=== PATIENT | female | born 1975 | race Caucasian/White ===

== ENCOUNTER 2016-10-02 11:50 | Emergency (ER) | payer OTHER, SELFPAY ==
[~2016-10-02] VITALS: Ht 157.5 cm; Wt 69.2 kg
[2016-10-02 11:50] VITALS: BP 111/60
[2016-10-02] MEDS ORDERED: IBUP80TA PO (12:15)
[2016-10-02] MEDS ORDERED: CLINDAMYCIN 150 MG CAP PO ONE (12:15)
[2016-10-02] MEDS ORDERED: CLIN150C14 PO (12:15)
[2016-10-02] MEDS ORDERED: IBUPROFEN 800 MG TAB PO ONE (12:15)
== END 2016-10-02 12:28 | disposition home or self-care (01) ==
LOC: M ED 11:50
DX: L08.9 Local infection of the skin and subcutaneous tissue, unspecified (principal); F17.210 Nicotine dependence, cigarettes, uncomplicated; Z88.2 Allergy status to sulfonamides; Z88.5 Allergy status to narcotic agent

== ENCOUNTER 2016-10-04 00:22 | Emergency (ER) | payer SELFPAY ==
[~2016-10-04] VITALS: Ht 154.9 cm; Wt 69.0 kg
[~2016-10-04 00:22] MED LIST: CLIN150C14 PO; IBUP80TA PO
[2016-10-04] MEDS: ONDANSETRON 4 MG ORAL DISINTEGRATING TAB (S0181) PO ONE ×2 (06:30→06:33)
[2016-10-04] MEDS ORDERED: IBUPROFEN 800 MG TAB PO ONE (06:30)
[2016-10-04 07:12] VITALS: BP 106/51
--- NOTE | 2016-10-04 07:20 | REPUSA ---
BREAST ULTRASOUND: CLINICAL HISTORY: Pain. TECHNIQUE: Realtime sonographic images were obtained in multiple projections. COMMENTS: The right breast was scanned between 12 and 2:00. There is a palpable lump at 1:00 that corresponds to a complex cyst likely a sebaceous measuring 1.1x 1.6x0.7 cm. This is noted at both 3 cm from nipple. IMPRESSION: Palpable lump at 1:00 that corresponds to a complex sebaceous cyst. Thank you for your kind referral of this patient.
[2016-10-04] MEDS ORDERED: ULTR50TA8 PO (07:33)
== END 2016-10-04 07:41 | disposition home or self-care (01) ==
LOC: M ED 00:22
DX: N60.81 Other benign mammary dysplasias of right breast (principal); J44.9 Chronic obstructive pulmonary disease, unspecified; F17.210 Nicotine dependence, cigarettes, uncomplicated; Z79.2 Long term (current) use of antibiotics; Z88.5 Allergy status to narcotic agent; Z88.2 Allergy status to sulfonamides

== ENCOUNTER 2016-10-06 03:20 | Emergency (ER) | payer SELFPAY ==
[~2016-10-06 03:20] MED LIST changes: +ULTR50TA8 PO
[2016-10-06 03:25] VITALS: BP 114/57
[2016-10-06] MEDS ORDERED: PERCOCET 5MG/325MG TAB PO ONE (07:30)
[2016-10-06] MEDS ORDERED: ONDANSETRON 4 MG ORAL DISINTEGRATING TAB (S0181) PO ONE (07:30)
[2016-10-06] MEDS ORDERED: PERC5TAB12 PO (07:35)
== END 2016-10-06 09:44 | disposition home or self-care (01) ==
LOC: M ED 03:20
DX: L72.3 Sebaceous cyst (principal); J45.909 Unspecified asthma, uncomplicated; N80.9 Endometriosis, unspecified; F17.210 Nicotine dependence, cigarettes, uncomplicated; Z88.2 Allergy status to sulfonamides; Z88.5 Allergy status to narcotic agent

== ENCOUNTER 2017-03-02 15:17 | Emergency (ER) | payer SELFPAY ==
[2017-03-02] MEDS: AMOXICILLIN 500 MG CAP PO (16:15)
[2017-03-02] MEDS: LIDOCAINE VISCOUS 2% SOLN 15ML UDC TOP (16:16)
== END 2017-03-02 16:25 | disposition home or self-care (01) ==
LOC: M ED 15:17
DX: H66.91 Otitis media, unspecified, right ear (principal); J02.9 Acute pharyngitis, unspecified; J45.909 Unspecified asthma, uncomplicated; Z88.5 Allergy status to narcotic agent; Z88.1 Allergy status to other antibiotic agents; Z88.2 Allergy status to sulfonamides
CPT/HCPCS: 87880

== ENCOUNTER 2017-04-02 06:47 | Emergency (ER) | payer SELFPAY ==
[2017-04-02] MEDS: KETOROLAC 60 MG/2 ML VIAL (J1885) IM (08:21)
[2017-04-02] MEDS: diazePAM 5 MG TAB PO (08:21)
[2017-04-02] MEDS: predniSONE 20 MG TAB PO (08:21)
== END 2017-04-02 09:26 | disposition home or self-care (01) ==
LOC: M ED 06:47
DX: M54.32 Sciatica, left side (principal); J45.909 Unspecified asthma, uncomplicated; F17.210 Nicotine dependence, cigarettes, uncomplicated; Z88.5 Allergy status to narcotic agent; Z88.1 Allergy status to other antibiotic agents; Z88.2 Allergy status to sulfonamides; Z98.890 Other specified postprocedural states; Z87.42 Personal history of other diseases of the female genital tract
CPT/HCPCS: J1885

== ENCOUNTER → 2017-08-08 | Outpatient (REF) | payer OTHER | LOC: M LAB REF 08-09 13:40 | DX: N30.01 Acute cystitis with hematuria (principal) | CPT/HCPCS: 87086 ==

== ENCOUNTER → 2017-08-28 | Outpatient (CLI) | payer OTHER ==
[2017-08-28 10:17] LABS: BASO % 0.4 % (0.0-1.0); EOS # 0.1 10^3/uL (0.0-0.50); EOS % 0.7 % (0.0-3.0); HEMATOCRIT 39.3 % (36.0-47.0); HEMOGLOBIN 13.3 g/dl (12.0-15.5); IMMATURE GRANULOCYTE % 0.2 % (0-3.0); LYMPH # 2.3 10^3/uL (1.5-4.5); LYMPH % 23.5 % (24.0-44.0); MEAN CORPUSCULAR HEMOGLOBIN 30.8 pg (27.0-33.0); MEAN CORPUSCULAR HGB CONC 33.8 g/dl (32.0-36.5); MONO # 0.8 10^3/uL (0.0-0.8); NEUTROPHILS # 6.5 10^3/uL (1.8-7.7); NEUTROPHILS % 67.2 % (36.0-66.0); PLATELET COUNT, AUTOMATED 343 10^3/uL (150-450); RED BLOOD COUNT 4.32 10^6/uL (4.00-5.40); WHITE BLOOD COUNT 9.6 10^3/uL (4.0-10.0)
[2017-08-28 11:35] LABS: THYROID STIMULATING HORMONE 0.949 uIU/ML (0.358-3.740)
== END ==
LOC: M RAD 09:16
DX: N93.9 Abnormal uterine and vaginal bleeding, unspecified (principal)
CPT/HCPCS: 76856

== ENCOUNTER 2017-09-09 01:44 | Emergency (ER) | payer OTHER ==
[2017-09-09] MEDS: KETOROLAC 30 MG/ML VIAL (J1885) IV (03:38)
[2017-09-09] MEDS: HYDROMORPHONE HCL 0.5 MG/ 0.5 ML SYRINGE (J1170 PER 1) IV (03:38)
[2017-09-09] MEDS: ONDANSETRON 4MG/2ML VIAL (J2405) IV (03:38)
[2017-09-09] MEDS: METHOCARBAMOL 1,000 MG/10 ML VIAL (J2800) IV (03:49)
== END 2017-09-09 06:48 | disposition home or self-care (01) ==
LOC: M ED 01:44
DX: R07.89 Other chest pain (principal); Z88.1 Allergy status to other antibiotic agents; Z88.2 Allergy status to sulfonamides; Z88.5 Allergy status to narcotic agent; F17.210 Nicotine dependence, cigarettes, uncomplicated
CPT/HCPCS: J2405

== ENCOUNTER → 2017-09-28 | Outpatient (REF) | payer OTHER | LOC: M LAB REF 19:36 | DX: N93.9 Abnormal uterine and vaginal bleeding, unspecified (principal) | CPT/HCPCS: 88304 ==

== ENCOUNTER → 2017-10-10 | Outpatient (REF) | payer OTHER ==
[2017-10-12 14:17] LABS: HPV HYBRID CAPTURE II Positive (Negative)
== END ==
LOC: M LAB REF 17:56
DX: Z11.51 Encounter for screening for human papillomavirus (HPV) (principal)
CPT/HCPCS: 88142

== ENCOUNTER → 2017-10-20 | Outpatient (REF) | payer OTHER ==
[2017-10-20 12:50] LABS: BASO % 0.4 % (0.0-1.0); EOS # 0.1 10^3/uL (0.0-0.50); EOS % 1.3 % (0.0-3.0); HEMATOCRIT 41.8 % (36.0-47.0); HEMOGLOBIN 13.8 g/dl (12.0-15.5); IMMATURE GRANULOCYTE % 0.3 % (0-3.0); LYMPH # 1.7 10^3/uL (1.5-4.5); LYMPH % 21.7 % (24.0-44.0); MEAN CORPUSCULAR HEMOGLOBIN 30.8 pg (27.0-33.0); MEAN CORPUSCULAR VOLUME 93.3 fl (80.0-96.0); MONO # 0.8 10^3/uL (0.0-0.8); MONO % 9.9 % (0.0-5.0); NEUTROPHILS # 5.3 10^3/uL (1.8-7.7); NEUTROPHILS % 66.4 % (36.0-66.0); PLATELET COUNT, AUTOMATED 314 10^3/uL (150-450); RED BLOOD COUNT 4.48 10^6/uL (4.00-5.40); RED CELL DISTRIBUTION WIDTH 13.1 % (11.5-14.5)
[2017-10-20 13:11] LABS: ALBUMIN 3.4 GM/DL (3.2-5.2); ALBUMIN/GLOBULIN RATIO 1.03 (1.00-1.93); ALKALINE PHOSPHATASE 50 U/L (45-117); ALT/SGPT 16 U/L (12-78); ANION GAP 7 MEQ/L (8-16); AST/SGOT 11 U/L (7-37); BILIRUBIN,TOTAL 0.3 MG/DL (0.2-1.0); BLOOD UREA NITROGEN 7 MG/DL (7-18); CALCIUM LEVEL 8.7 MG/DL (8.5-10.1); CARBON DIOXIDE LEVEL 27 MEQ/L (21-32); CHLORIDE LEVEL 108 MEQ/L (98-107); CHOLESTEROL LEVEL 164 MG/DL (<200); CHOLESTEROL RISK RATIO 3.489 (<5); CREATININE FOR GFR 0.52 MG/DL (0.55-1.30); GLOMERULAR FILTRATION RATE > 60.0 (>58); GLUCOSE, FASTING 77 MG/DL (70-100); HDL CHOLESTEROL 47 MG/DL (>40); LDL CHOLESTEROL 99.4 MG/DL (<100); NON-HDL-C 117 MG/DL; POTASSIUM SERUM 4.1 MEQ/L (3.5-5.1); SODIUM LEVEL 142 MEQ/L (136-145); TOTAL PROTEIN 6.7 GM/DL (6.4-8.2); TRIGLYCERIDES LEVEL 88 MG/DL (<150)
== END ==
LOC: M SFHCADAM 12:16
DX: Z01.818 Encounter for other preprocedural examination (principal); N92.6 Irregular menstruation, unspecified
CPT/HCPCS: 80053

== ENCOUNTER 2017-10-23 06:02 | Day surgery (SDC) | payer OTHER ==
[2017-10-23 06:25] LABS: HEMATOCRIT 41.1 % (36.0-47.0); HEMOGLOBIN 13.9 g/dl (12.0-15.5); MEAN CORPUSCULAR HEMOGLOBIN 31.4 pg (27.0-33.0); MEAN CORPUSCULAR HGB CONC 33.8 g/dl (32.0-36.5); PLATELET COUNT, AUTOMATED 303 10^3/uL (150-450); RED BLOOD COUNT 4.42 10^6/uL (4.00-5.40); RED CELL DISTRIBUTION WIDTH 13.2 % (11.5-14.5); WHITE BLOOD COUNT 7.3 10^3/uL (4.0-10.0)
[2017-10-23 06:31] LABS: CONTROL LINE HCG INT CTR LINE PRESENT; HCG, SERUM QUALITATIVE NEGATIVE (NEGATIVE)
[2017-10-23] MEDS: LR 1,000 ML IV ×3 (06:45→12:03)
[2017-10-23] MEDS ORDERED: LIDOCAINE 2% INJ 100 MG/5 ML SDV (FOR ANES.) As Ordered (07:17)
[2017-10-23] MEDS ORDERED: MIDAZOLAM INJ 2 MG/2 ML VIAL (J2250) As Ordered (07:17)
[2017-10-23] MEDS ORDERED: ROCURONIUM BROMIDE 50 MG/5 ML VIAL As Ordered ×2 (07:17→08:26)
[2017-10-23] MEDS ORDERED: fentaNYL 100 MCG/2 ML INJECTION (J3010) As Ordered ×2 (07:17→08:11)
[2017-10-23] MEDS ORDERED: PROPOFOL 200 MG/20 ML VIAL As Ordered (07:17)
[2017-10-23] MEDS ORDERED: PHENYLEPHRINE INJ 10MG/ML VIAL (J2370) As Ordered (07:55)
[2017-10-23] MEDS ORDERED: dexameTHASONE 4 MG/ML 1ML VIAL (J1100) As Ordered (07:55)
[2017-10-23] MEDS ORDERED: PHENYLephrine HCL 500 MCG/5 ML (100MCG/ML) SYRINGE (J2370) As Ordered (07:56)
[2017-10-23] MEDS ORDERED: CALCIUM CHLORIDE 10% 1 GM/10 ML SYR As Ordered (08:06)
[2017-10-23] MEDS ORDERED: ePHEDrine SULFATE 25 MG/5 ML(5MG/ML) SYRINGE As Ordered (08:23)
[2017-10-23] MEDS: METHYLENE BLUE 0.5% (5MG/ML) 10 ML AMP (PROVAYBLUE)(Q9968 PER 1MG) As Ordered (09:01)
[2017-10-23] MEDS ORDERED: KETOROLAC 60 MG/2 ML VIAL (J1885) As Ordered (09:13)
[2017-10-23] MEDS ORDERED: NEOSTIGMINE 10 MG/10 ML VIAL (J2710) As Ordered (09:13)
[2017-10-23] MEDS ORDERED: ONDANSETRON 4MG/2ML VIAL (J2405) As Ordered (09:13)
[2017-10-23] MEDS ORDERED: GLYCOPYRROLATE INJ 0.2 MG/ML 2 ML VIAL As Ordered (09:13)
[2017-10-23] MEDS ORDERED: HYDROmorphone HCL 2 MG/ML 1ML VIAL (J1170) As Ordered (09:43)
[2017-10-23] MEDS: BUPIVACAINE HCL 0.25% 30 ML VIAL As Ordered (09:47)
[2017-10-23] MEDS ORDERED: PROMETHAZINE 25 MG TAB PO (10:00)
[2017-10-23] MEDS ORDERED: PROMETHAZINE INJ 25 MG/ML VIAL (J2550) IV (10:00)
[2017-10-23] MEDS: SILVER NITRATE APPLICATOR As Ordered (10:06)
[2017-10-23] MEDS ORDERED: fentaNYL 100 MCG/2 ML INJECTION (J3010) IV (10:30)
[2017-10-23] MEDS ORDERED: PERCOCET 5MG/325MG TAB PO (10:30)
[2017-10-23] MEDS ORDERED: ONDANSETRON 4MG/2ML VIAL (J2405) IV (10:30)
[2017-10-23] MEDS ORDERED: METOCLOPRAMIDE INJ 10MG/2ML VIAL (J2765) IV (10:30)
[2017-10-23] MEDS: traMADol 50 MG TAB PO (12:04)
[2017-10-23] MEDS: KETOROLAC 30 MG/ML VIAL (J1885) IV (15:03)
[2017-10-23] MEDS ORDERED: DOCUSATE SODIUM 100 MG CAP PO (21:00)
== END 2017-10-23 18:19 | disposition home or self-care (01) ==
LOC: M SDC 06:02 → M PED 11:00 → M SDC 18:19
DX: N92.6 Irregular menstruation, unspecified (principal); N72 Inflammatory disease of cervix uteri; N84.0 Polyp of corpus uteri; N83.01 Follicular cyst of right ovary; F41.9 Anxiety disorder, unspecified; J45.909 Unspecified asthma, uncomplicated; F17.210 Nicotine dependence, cigarettes, uncomplicated; Z88.2 Allergy status to sulfonamides
CPT/HCPCS: 58571

== ENCOUNTER → 2017-11-08 | Outpatient (CLI) | payer OTHER | LOC: M RAD 08:21 | DX: Z12.31 Encounter for screening mammogram for malignant neoplasm of breast (principal) | CPT/HCPCS: 77067 ==

== ENCOUNTER 2018-01-28 15:32 | Emergency (ER) | payer OTHER ==
[2018-01-28] MEDS: LIDOCAINE W/EPINEPHRINE 1% 20ML VIAL SC (16:30)
[2018-01-28] MEDS: CLINDAMYCIN 300 MG in APPROPRIATE DILUENT 1 EA IV (16:35)
[2018-01-28 16:47] LABS: BASO % 0.5 % (0.0-1.0); EOS # 0.1 10^3/uL (0.0-0.50); EOS % 1.2 % (0.0-3.0); HEMATOCRIT 39.4 % (36.0-47.0); HEMOGLOBIN 13.4 g/dl (12.0-15.5); IMMATURE GRANULOCYTE % 0.1 % (0-3.0); LYMPH # 3.4 10^3/uL (1.5-4.5); LYMPH % 39.3 % (24.0-44.0); MEAN CORPUSCULAR HEMOGLOBIN 30.9 pg (27.0-33.0); MONO # 0.7 10^3/uL (0.0-0.8); MONO % 8.4 % (0.0-5.0); NEUTROPHILS # 4.3 10^3/uL (1.8-7.7); NEUTROPHILS % 50.5 % (36.0-66.0); PLATELET COUNT, AUTOMATED 323 10^3/uL (150-450); RED BLOOD COUNT 4.33 10^6/uL (4.00-5.40); RED CELL DISTRIBUTION WIDTH 12.7 % (11.5-14.5); WHITE BLOOD COUNT 8.6 10^3/uL (4.0-10.0)
[2018-01-28 17:03] LABS: ANION GAP 4 MEQ/L (8-16); BLOOD UREA NITROGEN 9 MG/DL (7-18); C REACTIVE PROTEIN QUANTITATIV < 0.30 MG/DL (0.00-0.30); CALCIUM LEVEL 8.7 MG/DL (8.5-10.1); CARBON DIOXIDE LEVEL 29 MEQ/L (21-32); CHLORIDE LEVEL 105 MEQ/L (98-107); CREATININE FOR GFR 0.59 MG/DL (0.55-1.30); GLOMERULAR FILTRATION RATE > 60.0 (>58); GLUCOSE, FASTING 81 MG/DL (70-100); POTASSIUM SERUM 3.8 MEQ/L (3.5-5.1); SODIUM LEVEL 138 MEQ/L (136-145)
[2018-01-28 17:09] LABS: ERYTHROCYTE SEDIMENTATION RATE 15 mm/hr (0-20)
[2018-01-28] MEDS: PERCOCET 5MG/325MG TAB PO (17:26)
== END 2018-01-28 17:45 | disposition home or self-care (01) ==
LOC: M ED 15:32
DX: N61.1 Abscess of the breast and nipple (principal); J45.909 Unspecified asthma, uncomplicated
CPT/HCPCS: 80048

== ENCOUNTER → 2018-02-06 | Outpatient (REF) | payer OTHER | LOC: M LAB REF 17:16 | DX: L72.3 Sebaceous cyst (principal); N61.1 Abscess of the breast and nipple | CPT/HCPCS: 88304 ==

== ENCOUNTER 2018-05-04 13:15 | Emergency (ER) | payer OTHER ==
[~2018-05-04] VITALS: Ht 154.9 cm; Wt 70.5 kg
[~2018-05-04 13:15] MED LIST changes: +AMOX875T PO; +CLEO300C2 PO; +CYCL10TA; +DOXY-350 PO; +IBUP1TAB7 PO; +METH4PACK; +NAPR-50 PO; +NORCOTAB PO; +PERC5TAB12 PO; +PRED20TA PO; +ROBA500T PO; +TRAM50TA2 PO; +VALI5TAB PO
[2018-05-04] MEDS ORDERED: FLUTISP (13:25)
[2018-05-04] MEDS ORDERED: CEFD1CAP8 (13:25)
[2018-05-04] MEDS ORDERED: ALBUTEROL (13:25)
[2018-05-04] MEDS ORDERED: NS 1,000 ML IV ONE (13:45)
[2018-05-04 13:52] LABS: BASO # 0.1 10^3/uL (0.0-0.2); BASO % 0.6 % (0.0-1.0); EOS # 0.1 10^3/uL (0.0-0.50); EOS % 1.1 % (0.0-3.0); HEMOGLOBIN 13.5 g/dl (12.0-15.5); LYMPH # 3.1 10^3/uL (1.5-4.5); LYMPH % 34.7 % (24.0-44.0); MEAN CORPUSCULAR HEMOGLOBIN 30.8 pg (27.0-33.0); MEAN CORPUSCULAR HGB CONC 33.8 g/dl (32.0-36.5); MEAN CORPUSCULAR VOLUME 91.3 fl (80.0-96.0); MONO # 0.7 10^3/uL (0.0-0.8); MONO % 7.7 % (0.0-5.0); NEUTROPHILS % 55.8 % (36.0-66.0); PLATELET COUNT, AUTOMATED 299 10^3/uL (150-450); RED BLOOD COUNT 4.38 10^6/uL (4.00-5.40); WHITE BLOOD COUNT 8.9 10^3/uL (4.0-10.0)
[2018-05-04 14:38] LABS: ALBUMIN 3.7 GM/DL (3.2-5.2); ALT/SGPT 19 U/L (12-78); BILIRUBIN,DIRECT < 0.1 MG/DL (0.0-0.2); BILIRUBIN,TOTAL 0.3 MG/DL (0.2-1.0); BLOOD UREA NITROGEN 11 MG/DL (7-18); CALCIUM LEVEL 8.7 MG/DL (8.5-10.1); CARBON DIOXIDE LEVEL 26 MEQ/L (21-32); CHLORIDE LEVEL 106 MEQ/L (98-107); CPK CREATINE PHOSPHOKINASE 78 U/L (26-192); CREATININE FOR GFR 0.51 MG/DL (0.55-1.30); GLOMERULAR FILTRATION RATE > 60.0 (>58); GLUCOSE, FASTING 82 MG/DL (70-100); LIPASE 147 U/L (73-393); MB/CK RELATIVE INDEX 1.41 (< OR =4); POTASSIUM SERUM 4.3 MEQ/L (3.5-5.1); SODIUM LEVEL 139 MEQ/L (136-145); TOTAL PROTEIN 7.1 GM/DL (6.4-8.2); TROPONIN I < 0.02 NG/ML (< 0.10)
[2018-05-04] MEDS ORDERED: ISOVUE-370 76% 100ML VIAL (Q9967) As Ordered ONE (14:39)
--- NOTE | 2018-05-04 15:26 | REP ---
Clinical: Acute chest pain. Technique: Axial contrast enhanced images from the thoracic inlet to the upper abdomen using 100 ml Isovue 370 intravenous contrast material with coronal and sagittal re-formations. Findings: Satisfactory enhancement of the pulmonary vasculature is achieved and no filling defects are identified to suggest pulmonary embolus. Thoracic aorta is normal caliber without aneurysm or dissection. Heart and pericardium are normal. Lung santillan demonstrate mild bibasilar atelectasis and dependent changes along with 1.5 cm benign right lower lobe pulmonary cyst. No effusion. No pneumothorax. Tracheobronchial tree is patent. Mild mediastinal and hilar adenopathy cannot be excluded and possibly reactive. Impression: No evidence for pulmonary embolus. Mild bibasilar atelectasis. Electronically Signed by Grupo Lima MD 05/04/2018 03:17 P
[2018-05-04] MEDS ORDERED: NAPR-50 PO (15:39)
[2018-05-04 15:54] VITALS: BP 108/56
--- NOTE | 2018-05-05 17:51 | ECGEPIP ---
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
== END 2018-05-04 15:56 | disposition home or self-care (01) ==
LOC: M ED 13:15
DX: M94.0 Chondrocostal junction syndrome [Tietze] (principal)
CPT/HCPCS: 71275; 80048; 80076; 81001; 82550; 82553; 83690; 85025; 87086; 93005; 96360; 99284; Q9967

== ENCOUNTER 2018-05-07 14:29 | Emergency (ER) | payer OTHER ==
[~2018-05-07] VITALS: Ht 154.9 cm; Wt 70.5 kg
[2018-05-07 14:29] VITALS: BP 112/58
[~2018-05-07 14:29] MED LIST changes: +ALBUTEROL; +CEFD1CAP8; +FLUTISP
--- NOTE | 2018-05-07 17:33 | ED PDOC ---
Post-Departure Follow-Up SAW PT IN ROOM #25. EXAMINED PT AND TALKED ABOUT THE WORKUP SHE HAD ON 05/04/18, H OW THEY RULED OUT A BLOOD CLOT AND CARDIAC CAUSES FOR HER PAIN. ADVISED SHE HAS PAIN NEAR HER RIGHT SCAPULA AND CVA. PT VOICED UNDERSTANDING AND WAS IN AGREEMENT WITH TODAY'S WORKUP AT THE TIME OF EXAM. PT STATED SHE HAD A HX OF KIDNEY STONES AND ADVISED SHE HAD BLOOD IN HER URINE AT THE TIME OF THE PREVIOUS WORKUP. ADVISED THIS COULD BE A KIDNEY STONE TODAY CAUSING HER PAIN THAT STARTED SUDDENLY 3-4 DAYS AGO. PT WAS IN AGREEMENT WITH THIS. I WALKED OUT OF THE ROOM, BACK TO THE DESK AND BEGAN PUTTING IN ORDERS AFTER TELLING [place] FULTON RN THAT SHE COULD BE MOVED TO AN [facility] ROOM FOR AN IV AND APPROPRIATE WORKUP. [place] ENTERED ROOM (SEE HER NOTE FOR THE ENCOUNTER) AND PT HAD BEEN ON THE PHONE. WHEN [place] ADVISED SHE WOULD BE MOVED INTO A DIFFERENT ROOM, THE PT STATED SHE WANTED TO LEAVE. NO KNOWN REASON, PT SEEMED UPSET THAT SHE WAS BEING WORKED UP FOR A POTENTIAL KIDNEY STONE AND WAS SURE THAT THIS WAS NOT THE CAUSE OF HER PAIN. PT LEFT WITHOUT ANY MORE INTERVENTIONS. AMA PAPERWORK SIGNED. SHANE MCKINNEY PA-C May 07, 2018 17:33
--- NOTE | 2018-05-07 19:59 | ECGEPIP ---
Stationary ECG Study [facility] - ED Test Date: 2018-05-07 Pat Name: MIRELA MEJIA Department: Room: - Gender: F Line Ordering Clinician: paul : 1975 Requested By: SHANE Reyes PA-C Order Number: [id number] Reading MD: rEinn Chawla Measurements Intervals [place] Rate: 68 P: 59 IN: 162 QRS: 59 QRSD: 81 T: 47 QT: 405 QTc: 432 Interpretive Statements SINUS RHYTHM POSSIBLE RIGHT VENTRICULAR CONDUCTION DELAY NONSPECIFIC ST T WAVE CHANGES CW 05/04/18 RATE DECREASED Electronically Signed On 05-07-2018 19:59:12 EST by Erinn Chawla
== END 2018-05-07 17:21 | disposition left against medical advice (07) ==
LOC: M ED 14:29
DX: R10.9 Unspecified abdominal pain (principal); J45.909 Unspecified asthma, uncomplicated; N80.9 Endometriosis, unspecified; F41.9 Anxiety disorder, unspecified; Z87.442 Personal history of urinary calculi; F17.200 Nicotine dependence, unspecified, uncomplicated; Z88.0 Allergy status to penicillin; Z91.013 Allergy to seafood; Z79.899 Other long term (current) drug therapy; Z79.2 Long term (current) use of antibiotics; Z79.1 Long term (current) use of non-steroidal anti-inflammatories (NSAID)

== ENCOUNTER 2018-07-29 17:08 | Emergency (ER) | payer OTHER ==
[~2018-07-29] VITALS: Ht 154.9 cm; Wt 73.9 kg
[2018-07-29 17:08] VITALS: BP 128/65
[~2018-07-29 17:08] MED LIST changes: +HYDR-3715 PO; -NAPR-50 PO; +NAPR-837 PO; -NORCOTAB PO
[2018-07-29] MEDS ORDERED: IPRATROPIUM 0.5MG/ALBUTEROL 2.5MG INH SOL UD 3ML (DUONEB)(J7620) NEB ONE (17:30)
[2018-07-29] MEDS ORDERED: ALBUTEROL SULFATE 2.5 MG/0.5 ML INH NEB SOLN INH ONE (17:30)
[2018-07-29] MEDS ORDERED: POTASSIUM CHLORIDE 10 MEQ SR TABLET PO ONE (17:45)
[2018-07-29 17:51] LABS: HEMATOCRIT 37.1 % (36.0-47.0); HEMOGLOBIN 12.5 g/dl (12.0-15.5); MEAN CORPUSCULAR HEMOGLOBIN 31.3 pg (27.0-33.0); MEAN CORPUSCULAR HGB CONC 33.7 g/dl (32.0-36.5); PLATELET COUNT, AUTOMATED 325 10^3/uL (150-450); RED BLOOD COUNT 3.99 10^6/uL (4.00-5.40)
[2018-07-29 18:02] LABS: INR 0.91; PROTHROMBIN TIME 12.3 SECONDS (12.1-14.4)
[2018-07-29 18:03] LABS: PARTIAL THROMBOPLASTIN TIME 28.7 SECONDS (25.4-37.6)
--- NOTE | 2018-07-29 18:15 | REP ---
Clinical: Acute chest pain . Comparison: 09/09/2017 . Findings: The mediastinum and cardiac silhouette are stable and within normal limits for portable technique. The lung santillan are clear without acute consolidation, effusion, or pneumothorax. Skeletal structures are intact. Impression: No acute cardiopulmonary process appreciated. Electronically Signed by Grupo Lima MD 07/29/2018 06:07 P
[2018-07-29 18:27] LABS: ALBUMIN 3.2 GM/DL (3.2-5.2); ALT/SGPT 18 U/L (12-78); BILIRUBIN,DIRECT < 0.1 MG/DL (0.0-0.2); BILIRUBIN,TOTAL 0.2 MG/DL (0.2-1.0); CPK CREATINE PHOSPHOKINASE 81 U/L (26-192); FREE T4 1.19 NG/DL (0.76-1.46); LIPASE 170 U/L (73-393); MB/CK RELATIVE INDEX 1.23 (< OR =4); POTASSIUM SERUM 3.4 MEQ/L (3.5-5.1); TOTAL PROTEIN 6.6 GM/DL (6.4-8.2); TROPONIN I < 0.02 NG/ML (< 0.10)
[2018-07-29 18:28] LABS: EOSINOPHILS 1 % (0-5); LYMPHOCYTES 41 % (16-52); MONOCYTES 4 % (0-8); NEUTROPHILS 54 % (35-75)
[2018-07-29 18:29] LABS: PLATELET ESTIMATE NORMAL (NORMAL)
[2018-07-29] MEDS ORDERED: ISOVUE-370 76% 100ML VIAL (Q9967) As Ordered ONE ×2 (18:36→18:46)
--- NOTE | 2018-07-29 19:03 | REP ---
Clinical: Acute chest pain. Comparison: 05/04/2018 Technique: Axial contrast enhanced images from the thoracic inlet to the upper abdomen using 100 ml Isovue 370 intravenous contrast material with coronal and sagittal re-formations. Findings: Satisfactory enhancement of the pulmonary vasculature is achieved and no filling defects are identified to suggest pulmonary embolus. Thoracic aorta is normal caliber without aneurysm or dissection. Heart and pericardium are normal. Bilateral lung santillan are well aerated. Minimal bilateral posterior basilar dependent changes are appreciated. 2 cm pneumocele in the right lung base appears chronic. No consolidation, effusion, or pneumothorax. No adenopathy. Impression: No evidence for pulmonary embolus. No acute pleuroparenchymal or mediastinal process. Electronically Signed by Grupo Lima MD 07/29/2018 06:55 P
[2018-07-29] MEDS ORDERED: ALBU17IN2 INH (19:07)
[2018-07-29] MEDS ORDERED: PRED20TA PO (19:07)
--- NOTE | 2018-07-29 19:49 | ECGEPIP ---
[facility] - ED Test Date: 2018-07-29 Pat Name: MIRELA MEJIA Department: Room: - Gender: Female Minister: SHAID : 1975 Requested By: Erinn Chawla Order Number: [id number] Reading MD: Erinn Chawla Measurements Intervals [place] Rate: 87 P: 56 MS: 148 QRS: 69 QRSD: 83 T: 47 QT: 354 QTc: 426 Interpretive Statements SINUS RHYTHM WITH SINUS ARRHYTHMIA POSSIBLE RIGHT VENTRICULAR CONDUCTION DELAY NONSPECIFIC ST T WAVE CHANGES CW 05/07/18 RATE INCREASED Electronically Signed on 07-29-2018 19:49:33 EDT by Erinn Chawla
== END 2018-07-29 19:50 | disposition home or self-care (01) ==
LOC: M ED 17:08
DX: R06.00 Dyspnea, unspecified (principal); J06.9 Acute upper respiratory infection, unspecified; Z72.0 Tobacco use; Z79.899 Other long term (current) drug therapy; Z88.2 Allergy status to sulfonamides; Z88.5 Allergy status to narcotic agent
CPT/HCPCS: 71045; 71275; 80047; 80076; 82550; 82553; 83690; 83880; 84439; 84443; 85025; 85610; 85730; 87040; 93005; 93041; 94640; 94760; 99285; Q9967

== ENCOUNTER → 2018-11-08 | Outpatient (REF) | payer OTHER ==
[~2018-11-08] MED LIST changes: +PROV108A INH
[2018-11-08 13:15] LABS: BASO % 0.3 % (0.0-1.0); EOS # 0.1 10^3/uL (0.0-0.5); EOS % 1.1 % (0.0-3.0); HEMATOCRIT 41.9 % (36.0-47.0); HEMOGLOBIN 14.1 g/dl (12.0-15.5); LYMPH # 2.5 10^3/uL (1.5-5.0); LYMPH % 28.8 % (24.0-44.0); MEAN CORPUSCULAR HEMOGLOBIN 31.9 pg (27.0-33.0); MEAN CORPUSCULAR HGB CONC 33.7 g/dl (32.0-36.5); MEAN CORPUSCULAR VOLUME 94.8 fl (80.0-96.0); MONO # 0.7 10^3/uL (0.0-0.8); MONO % 7.9 % (0.0-5.0); NEUTROPHILS # 5.4 10^3/uL (1.5-8.5); NEUTROPHILS % 61.7 % (36.0-66.0); PLATELET COUNT, AUTOMATED 291 10^3/uL (150-450); RED BLOOD COUNT 4.42 10^6/uL (4.00-5.40); WHITE BLOOD COUNT 8.8 10^3/uL (4.0-10.0)
[2018-11-08 13:41] LABS: ALBUMIN 3.7 GM/DL (3.2-5.2); ALT/SGPT 17 U/L (12-78); BILIRUBIN,TOTAL 0.4 MG/DL (0.2-1.0); BLOOD UREA NITROGEN 11 MG/DL (7-18); CALCIUM LEVEL 9.1 MG/DL (8.5-10.1); CARBON DIOXIDE LEVEL 26 MEQ/L (21-32); CHLORIDE LEVEL 108 MEQ/L (98-107); CHOLESTEROL LEVEL 170 MG/DL (<200); CHOLESTEROL RISK RATIO 3.863 (<5); CREATININE FOR GFR 0.62 MG/DL (0.55-1.30); FREE T4 1.33 NG/DL (0.76-1.46); GLOMERULAR FILTRATION RATE > 60.0 (>58); GLUCOSE, FASTING 91 MG/DL (70-100); HDL CHOLESTEROL 44 MG/DL (>40); LDL CHOLESTEROL 84 MG/DL (<100); NON-HDL-C 126 MG/DL; POTASSIUM SERUM 4.5 MEQ/L (3.5-5.1); SODIUM LEVEL 139 MEQ/L (136-145); TOTAL PROTEIN 6.9 GM/DL (6.4-8.2); TRIGLYCERIDES LEVEL 212 MG/DL (<150)
[2018-11-08 14:31] LABS: HEMOGLOBIN A1c 5.4 %
== END ==
LOC: M SFHCPLAZ 08:50
PROVIDERS: ATTEND Family Medicine
DX: Z00.00 Encounter for general adult medical examination without abnormal findings (principal); Z13.1 Encounter for screening for diabetes mellitus

== ENCOUNTER → 2019-02-20 | Outpatient (REF) | payer OTHER | LOC: M LAB REF 19:00 | PROVIDERS: ATTEND Physician Assistant Medical | DX: J02.9 Acute pharyngitis, unspecified (principal) ==

== ENCOUNTER → 2019-07-11 | Outpatient (REF) | payer OTHER ==
[~2019-07-11] MED LIST changes: +CYCL-707; -CYCL10TA
[2019-07-11 17:31] LABS: APPEARANCE, URINE CLEAR (CLEAR); BACTERIA, URINE AUTO NEGATIVE (NEGATIVE); BILIRUBIN, URINE AUTO NEGATIVE (NEGATIVE); BLOOD, URINE BLOOD 2+ (NEGATIVE); COLOR, URINE YELLOW (YELLOW); GLUCOSE, URINE (UA) AUTO NEGATIVE (NEGATIVE); KETONE, URINE AUTO NEGATIVE (NEGATIVE); LEUKOCYTE ESTERASE, URINE AUTO NEGATIVE (NEGATIVE); MUCUS, URINE SMALL (NEGATIVE); NITRITE, URINE AUTO NEGATIVE (NEGATIVE); PROTEIN, URINE AUTO NEGATIVE (NEGATIVE); RBC, URINE AUTO 1 /HPF (0-3); SPECIFIC GRAVITY URINE AUTO 1.006 (1.002-1.035); SQUAMOUS EPITHELIAL CELL UR AU 8 /HPF (0-6); UROBILINOGEN, URINE AUTO 0.2 mg/dL (0.0-2.0); WBC, URINE AUTO 2 /HPF (0-3)
== END ==
LOC: M SFHCADAM 16:22
PROVIDERS: ATTEND Family Medicine
DX: R30.0 Dysuria (principal)

== ENCOUNTER → 2020-01-08 | Outpatient (REF) | payer OTHER | LOC: M SFHCADAM 13:12 | PROVIDERS: ATTEND Family Medicine | DX: R05 Cough (principal) ==

== ENCOUNTER → 2020-05-29 | Outpatient (REF) | payer OTHER ==
[~2020-05-29] MED LIST changes: -CLIN150C14 PO; +CLIN150C15 PO
[2020-05-29 12:34] LABS: BASO % 0.3 % (0.0-1.0); EOS # 0.1 10^3/uL (0.0-0.5); HEMATOCRIT 44.1 % (36.0-47.0); HEMOGLOBIN 14.6 g/dl (12.0-15.5); LYMPH # 2.7 10^3/uL (1.5-5.0); LYMPH % 25.3 % (24.0-44.0); MEAN CORPUSCULAR HEMOGLOBIN 30.5 pg (27.0-33.0); MEAN CORPUSCULAR HGB CONC 33.1 g/dl (32.0-36.5); MEAN CORPUSCULAR VOLUME 92.3 fl (80.0-96.0); MONO # 0.8 10^3/uL (0.0-0.8); MONO % 7.3 % (2.0-8.0); NEUTROPHILS % 65.7 % (36.0-66.0); PLATELET COUNT, AUTOMATED 336 10^3/uL (150-450); RED BLOOD COUNT 4.78 10^6/uL (4.00-5.40); WHITE BLOOD COUNT 10.6 10^3/uL (4.0-10.0)
[2020-05-29 12:57] LABS: ALBUMIN 3.9 GM/DL (3.2-5.2); ALT/SGPT 27 U/L (12-78); AMYLASE 65 U/L (25-115); BILIRUBIN,TOTAL 0.3 MG/DL (0.2-1.0); BLOOD UREA NITROGEN 11 MG/DL (7-18); CARBON DIOXIDE LEVEL 25 MEQ/L (21-32); CHLORIDE LEVEL 106 MEQ/L (98-107); CREATININE FOR GFR 0.58 MG/DL (0.55-1.30); FREE T4 1.12 NG/DL (0.76-1.46); GLOMERULAR FILTRATION RATE > 60.0 (>58); GLUCOSE, FASTING 94 MG/DL (70-100); LIPASE 101 U/L (73-393); POTASSIUM SERUM 4.1 MEQ/L (3.5-5.1); SODIUM LEVEL 137 MEQ/L (136-145); TOTAL PROTEIN 7.3 GM/DL (6.4-8.2)
== END ==
LOC: M SFHCADAM 10:48
PROVIDERS: ATTEND Family Medicine
DX: R10.13 Epigastric pain (principal); R10.9 Unspecified abdominal pain; E66.9 Obesity, unspecified

== ENCOUNTER → 2020-06-01 | Outpatient (REF) | payer OTHER | LOC: M SFHCADAM 13:51 | PROVIDERS: ATTEND Family Medicine | DX: R19.7 Diarrhea, unspecified (principal) ==

== ENCOUNTER → 2020-06-17 | Outpatient (CLI) | payer OTHER ==
[~2020-06-17] MED LIST changes: +GASTROGRAFIN SOLUTION 30ML (Q9963) As Ordered ONE; +ISOVUE-370 76% 100ML VIAL As Ordered ONE
--- NOTE | 2020-06-18 18:31 | REP ---
INDICATION: ABD PAIN. COMPARISON: 06/29/2012 TECHNIQUE: Axial contrast-enhanced images from the lung bases to the pubic symphysis using 100 cc Isovue 370 intravenous contrast material. Coronal and sagittal reformations obtained. This CT examination was performed using the following dose reduction techniques: Automated exposure control, adjustment of mA and/or kv according to the patient's size, and the use of iterative reconstruction technique. FINDINGS: Liver demonstrates mild fatty infiltration without focal hepatic lesion. Spleen, pancreas, gallbladder, bilateral adrenal glands and kidneys are normal. The enteric system including stomach, small, and large bowel appears normal. No evidence for obstruction or acute inflammatory process. Normal terminal ileum and appendix are identified in the right lower quadrant. Few scattered sigmoid diverticula noted without acute diverticulitis. Pelvis demonstrates normal bladder and evidence for prior hysterectomy. There is a 5.3 cm solid right adnexal mass (series 201; images 117-127). No associated acute pelvic stranding, fluid or adenopathy identified No ascites. No free air. No intraperitoneal or retroperitoneal adenopathy. Abdominal aorta and vasculature appear normal. Musculoskeletal structures are intact and without acute osseous abnormality. IMPRESSION: 1. 5.3 cm solid right adnexal mass nonspecific. Consider pelvic ultrasound for further investigation. No associated stranding, fluid, or adenopathy identified. 2. Few scattered sigmoid diverticula. 3. Hepatosteatosis. <Electronically signed by Grupo Lima > 06/18/20 1022
== END ==
LOC: M RAD 14:59
PROVIDERS: ATTEND Family Medicine
DX: R10.9 Unspecified abdominal pain (principal)
CPT/HCPCS: 74177; Q9963; Q9967

== ENCOUNTER → 2020-06-29 | Outpatient (REF) | payer OTHER ==
[~2020-06-29] MED LIST changes: -GASTROGRAFIN SOLUTION 30ML (Q9963) As Ordered ONE; -ISOVUE-370 76% 100ML VIAL As Ordered ONE
[2020-06-29 18:05] LABS: CHOLESTEROL LEVEL 207 MG/DL (<200); CHOLESTEROL RISK RATIO 4.224 (<5); FERRITIN 92 NG/ML (8-252); HDL CHOLESTEROL 49 MG/DL (>40); IRON (FE) 80 UG/DL (50-170); LDL CHOLESTEROL 141 MG/DL (<100); NON-HDL-C 158 MG/DL; PERCENT SATURATION 22.4 % (13.2-45.0); TOTAL IRON BINDING CAPACITY 357 UG/DL (250-450); TRIGLYCERIDES LEVEL 87 MG/DL (<150)
[2020-06-30 10:07] LABS: HEPATITIS B SURFACE ANTIBODY POSITIVE (POSITIVE)
[2020-06-30 10:18] LABS: HEPATITIS B SURFACE ANTIGEN NEGATIVE (NEGATIVE)
== END ==
LOC: M SFHCADAM 13:25
PROVIDERS: ATTEND Family Medicine
DX: K76.0 Fatty (change of) liver, not elsewhere classified (principal)

== ENCOUNTER → 2020-07-01 | Outpatient (CLI) | payer OTHER ==
--- NOTE | 2020-07-01 12:11 | REP ---
INDICATION: ADNEXAL MASS. COMPARISON: 08/28/2017 the latest prior TECHNIQUE: Transvesical and transvaginal imaging FINDINGS: The uterus is surgically absent. In the right adnexa there is a hypoechoic 6.8 x 4 x 5.5 cm sized mass which has irregular margins. No normal appearing ovarian tissue is seen in the right adnexa. The left ovary was not visualized. Urinary bladder measures 13 x 9 x 10 cm. IMPRESSION: Large right adnexal mass as described above. Exact etiology uncertain. Consider pre and post gadolinium enhanced pelvic MRI <Electronically signed by Romero Rivera > 07/01/20 [id number]
== END ==
LOC: M RAD 11:18
PROVIDERS: ATTEND Family Medicine
DX: N94.89 Other specified conditions associated with female genital organs and menstrual cycle (principal)

== ENCOUNTER → 2020-07-09 | Outpatient (REF) | payer OTHER ==
[2020-07-09 13:21] LABS: LDH LACTATE DEHYDROGENASE 185 U/L (84-246)
[2020-07-09 13:54] LABS: CA 125 23.1 U/ML (<30.2); CA19-9 TUMOR MARKER,CARBOHYDRA 19.2 U/ML (<35.0)
[2020-07-14 16:09] LABS: AFP TUMOR TOTAL 1.6 ng/mL (0.0-8.0); INHIBIN A ULTRASENSITIVE 2.1 pg/mL (.); INHIBIN B 10.1 pg/mL (.)
== END ==
LOC: M PLALAB 09:28
PROVIDERS: ATTEND Obstetrics & Gynecology
DX: R19.00 Intra-abdominal and pelvic swelling, mass and lump, unspecified site (principal)

== ENCOUNTER → 2020-07-13 | Outpatient (REF) | payer OTHER | LOC: M LABDRWAD 12:19 | PROVIDERS: ATTEND Internal Medicine Gastroenterology | DX: K58.0 Irritable bowel syndrome with diarrhea (principal) ==

== ENCOUNTER → 2020-07-27 | Outpatient (CLI) | payer OTHER ==
--- NOTE | 2020-07-27 14:10 | REPMRS ---
Patient History The patient states she has not had a clinical breast exam in over a year. Family history of unknown cancer in father, unknown cancer in paternal grandmother. Patient states no breast complaints today. Patient has signed MRS History Sheet. Digital Woman Screen Mammo: July 27, 2020 - Exam #: [id number] Bilateral CC and MLO view(s) were taken. Technologist: Jayla Torres, Technologist Prior study comparison: November 08, 2017, bilateral digital mammo screening bilat, performed at [facility]. June 14, 2011, left breast digital mammo diagnostic bilateral, performed at [facility]. FINDINGS: There are scattered fibroglandular densities. The Volpara volumetric breast density category is:B. There has been no change in the appearance of the mammogram from the prior studies. There is a mild amount of scattered fibroglandular density which is fairly symmetric. There is no interval development of dominant mass, architectural distortion, or grouped microcalcification suggestive of malignancy. 3-D tomosynthesis shows no additional findings. Assessment: BI-RADS/ACR category 1 mammogram. Negative Mammogram. Recommendation Routine screening mammogram of both breasts in 1 year (for women over age 40). This patient's [facility] Lifetime Breast Cancer Risk is estimated at 8.5 %. This mammogram was interpreted with the aid of an FDA-approved computer-aided dectection system. Electronically Signed By: Bart Garcia MD 07/27/20 3221
== END ==
LOC: M WHC 12:37
PROVIDERS: ATTEND Obstetrics & Gynecology
DX: Z12.31 Encounter for screening mammogram for malignant neoplasm of breast (principal)

== ENCOUNTER 2021-01-20 07:04 | Outpatient (CLI) | payer OTHER ==
[~2021-01-20] VITALS: Ht 154.9 cm; Wt 80.0 kg
[~2021-01-20 07:04] MED LIST changes: +ALBUTEROL 90 MCG/ACT 8GM HFA INHALER INH PRN; +ALBUTEROL SULFATE 2.5 MG/0.5 ML INH NEB SOLN INH PRN; -CLIN150C15 PO; +CLIN150C17 PO; +EPINEPHrine INJ 1 MG/ML 1ML AMP IM PRN; +NS 1,000 ML IV SCH; +diphenhydrAMINE 50MG/ML VIAL (J1200) IV PRN; +methylPREDNISolone 125MG 2ML VIAL IV PRN
[2021-01-20 07:15] VITALS: BP 97/63
[2021-01-20 07:55] VITALS: BP 97/63
[2021-01-20] MEDS ORDERED: CASIRIVIMAB (REGN10933) 600 MG, IMDEVIMAB (REGN10987) 600 MG in NS 250 ML IV ONE (08:00)
[2021-01-20 08:25] VITALS: BP 102/62
[2021-01-20 08:55] VITALS: BP 102/64
[2021-01-20 09:55] VITALS: BP 106/53
== END 2021-01-20 09:55 | disposition home or self-care (01) ==
LOC: M OPCLI4PR 07:04
PROVIDERS: ATTEND Family Medicine
DX: U07.1 COVID-19 (principal); Z88.2 Allergy status to sulfonamides; Z88.6 Allergy status to analgesic agent

== ENCOUNTER → 2021-03-12 | Outpatient (REF) | payer OTHER ==
[~2021-03-12] MED LIST changes: -ALBUTEROL 90 MCG/ACT 8GM HFA INHALER INH PRN; -ALBUTEROL SULFATE 2.5 MG/0.5 ML INH NEB SOLN INH PRN; -CEFD1CAP8; +CEFD300C41; -EPINEPHrine INJ 1 MG/ML 1ML AMP IM PRN; -NS 1,000 ML IV SCH; -diphenhydrAMINE 50MG/ML VIAL (J1200) IV PRN; -methylPREDNISolone 125MG 2ML VIAL IV PRN
[2021-03-12 17:48] LABS: C REACTIVE PROTEIN QUANTITATIV < 0.30 MG/DL (0.00-0.30); RHEUMATOID FACTOR QUANT < 10.0 IU/ML (<15.0)
[2021-03-15 14:08] LABS: ANTINUCLEAR ANTIBODIES DIRECT Negative (Negative); Lyme Disease IgG/IgM Antibodie <0.91 ISR (0.00-0.90); Lyme Disease IgM Ab Quantitati <0.80 index (0.00-0.79)
== END ==
LOC: M SFHCADAM 14:51
PROVIDERS: ATTEND Family Medicine
DX: M25.60 Stiffness of unspecified joint, not elsewhere classified (principal)

== ENCOUNTER → 2021-05-18 | Outpatient (CLI) | payer BC | LOC: M RAD 16:42 | PROVIDERS: ATTEND Family Medicine | DX: N93.9 Abnormal uterine and vaginal bleeding, unspecified (principal) ==

== ENCOUNTER 2021-11-05 10:29 | Emergency (ER) | payer BC, MEDICAID, OTHER ==
[~2021-11-05 10:29] MED LIST changes: +ALBU6.7H6 INH; -PROV108A INH
[2021-11-05] MEDS ORDERED: KETOROLAC 60MG 2ML VIAL IM ONE (11:50)
[2021-11-05] MEDS ORDERED: dexameTHASONE 4 MG/ML 1ML VIAL (J1100 PER 1MG) IM ONE (11:50)
[2021-11-05] MEDS ORDERED: LIDOCAINE 5% (LIDODERM) PATCH TD ONE (11:50)
[2021-11-05] MEDS ORDERED: METH-1165 PO (12:35)
[2021-11-05] MEDS ORDERED: KETO10TAB PO (12:35)
[2021-11-05] MEDS ORDERED: LIDO5DIS41 TD (12:35)
[2021-11-05 12:49] VITALS: BP 120/64
[2021-11-06] MEDS ORDERED: **NOTE PATIENT COMMENT** MISC XX ONE
== END 2021-11-05 13:01 | disposition home or self-care (01) ==
LOC: M ED 10:29
DX: M62.830 Muscle spasm of back (principal); F17.200 Nicotine dependence, unspecified, uncomplicated; Z88.1 Allergy status to other antibiotic agents; Z88.2 Allergy status to sulfonamides; Z88.5 Allergy status to narcotic agent
CPT/HCPCS: 81000; 81015; 87086; 96372; 99284; J1100; J1885

== ENCOUNTER → 2021-12-07 | Outpatient (REF) | payer MEDICAID ==
[~2021-12-07] MED LIST changes: +BENZ200C70 PO; +KETO10TAB PO; +LIDO5DIS41 TD; +METH-1165 PO; +MUCI600T31 PO
== END ==
LOC: M SFHCADAM 12:50
PROVIDERS: ATTEND Family Medicine
DX: R09.81 Nasal congestion (principal)

== ENCOUNTER 2021-12-09 06:25 | Emergency (ER) | payer MEDICAID, OTHER ==
[~2021-12-09] VITALS: Ht 154.9 cm; Wt 81.8 kg
[~2021-12-09 06:25] MED LIST changes: -BENZ200C70 PO; -MUCI600T31 PO
[2021-12-09] MEDS ORDERED: methylPREDNISolone 125MG 2ML VIAL IV ONE (07:45)
[2021-12-09] MEDS ORDERED: IPRATROPIUM 0.5MG/ALBUTEROL 2.5MG INH SOL UD 3ML (DUONEB) NEB ONE (07:45)
[2021-12-09] MEDS ORDERED: NS 1,000 ML IV ONE (07:45)
[2021-12-09 08:07] LABS: BASO % 0.4 % (0.0-1.0); EOS % 0.2 % (0.0-3.0); HEMATOCRIT 41.3 % (36.0-47.0); HEMOGLOBIN 13.7 g/dl (12.0-15.5); LYMPH % 30.6 % (24.0-44.0); MEAN CORPUSCULAR HGB CONC 33.2 g/dl (32.0-36.5); MEAN CORPUSCULAR VOLUME 90.4 fl (80.0-96.0); MONO # 1.1 10^3/uL (0.0-0.8); MONO % 11.2 % (2.0-8.0); NEUTROPHILS # 5.7 10^3/uL (1.5-8.5); NEUTROPHILS % 57.4 % (36.0-66.0); PLATELET COUNT, AUTOMATED 329 10^3/uL (150-450); RED BLOOD COUNT 4.57 10^6/uL (4.00-5.40); WHITE BLOOD COUNT 9.9 10^3/uL (4.0-10.0)
[2021-12-09 08:50] LABS: CK-MB VALUE MASS < 1.0 NG/ML (<3.6); CPK CREATINE PHOSPHOKINASE 45 U/L (26-192); MB/CK RELATIVE INDEX 2.22 (< OR =4)
[2021-12-09 08:57] LABS: ALBUMIN 3.4 GM/DL (3.2-5.2); ALT/SGPT 17 U/L (12-78); BILIRUBIN,DIRECT 0.1 MG/DL (0.0-0.2); BILIRUBIN,TOTAL 0.4 MG/DL (0.2-1.0); BLOOD UREA NITROGEN 9 MG/DL (7-18); CALCIUM LEVEL 9.1 MG/DL (8.5-10.1); CARBON DIOXIDE LEVEL 24 MEQ/L (21-32); CHLORIDE LEVEL 107 MEQ/L (98-107); CREATININE FOR GFR 0.58 MG/DL (0.55-1.30); GLOMERULAR FILTRATION RATE > 60.0 (>58); GLUCOSE, FASTING 105 MG/DL (70-100); SODIUM LEVEL 136 MEQ/L (136-145); THYROID STIMULATING HORMONE 0.712 uIU/ML (0.358-3.740); TOTAL PROTEIN 7.3 GM/DL (6.4-8.2)
[2021-12-09] MEDS ORDERED: BENZ200C70 PO (10:15)
[2021-12-09] MEDS ORDERED: MUCI600T31 PO (10:15)
[2021-12-09 10:27] VITALS: BP 97/54
== END 2021-12-09 10:57 | disposition home or self-care (01) ==
LOC: M ED 06:25
DX: B34.8 Other viral infections of unspecified site (principal); J45.909 Unspecified asthma, uncomplicated
CPT/HCPCS: 71046; 80048; 80076; 82550; 82553; 84443; 85025; 87486; 87581; 87633; 87798; 93005; 96374; 99284; J2930

== ENCOUNTER 2022-03-11 08:17 | Emergency (ER) | payer MEDICAID, OTHER ==
[~2022-03-11] VITALS: Ht 154.9 cm; Wt 79.9 kg
[~2022-03-11 08:17] MED LIST changes: +BENZ200C70 PO; -DOXY-350 PO; +DOXY-444 PO; +MUCI600T31 PO
[2022-03-11] MEDS ORDERED: CYCLOBENZAPRINE 10MG TABLET PO ONE (11:05)
[2022-03-11] MEDS ORDERED: KETOROLAC 30 MG/ML 1ML VIAL IM ONE (11:05)
[2022-03-11] MEDS ORDERED: predniSONE 20 MG TAB PO ONE (11:05)
[2022-03-11] MEDS ORDERED: LIDOCAINE 5% (LIDODERM) PATCH TD ONE (11:05)
[2022-03-11] MEDS ORDERED: PERCOCET 5MG/325MG TAB PO ONE (12:20)
[2022-03-11] MEDS ORDERED: KETOROLAC 30 MG/ML 1ML VIAL IV ONE (12:25)
[2022-03-11] MEDS ORDERED: diazePAM 10MG/2ML SYRINGE IV ONE ×3 (14:45→19:05)
[2022-03-11] MEDS ORDERED: HYDROMORPHONE HCL 0.5 MG/ 0.5 ML SYRINGE IV STA (14:59)
[2022-03-11] MEDS ORDERED: NS 1,000 ML IV ONE (15:15)
[2022-03-11 16:05] LABS: BASO % 0.3 % (0.0-1.0); EOS % 0.1 % (0.0-3.0); HEMATOCRIT 43.4 % (36.0-47.0); HEMOGLOBIN 14.1 g/dl (12.0-15.5); LYMPH # 1.6 10^3/uL (1.5-5.0); LYMPH % 21.3 % (24.0-44.0); MEAN CORPUSCULAR HEMOGLOBIN 29.6 pg (27.0-33.0); MEAN CORPUSCULAR HGB CONC 32.5 g/dl (32.0-36.5); MONO # 0.2 10^3/uL (0.0-0.8); MONO % 2.1 % (2.0-8.0); NEUTROPHILS # 5.5 10^3/uL (1.5-8.5); NEUTROPHILS % 75.9 % (36.0-66.0); PLATELET COUNT, AUTOMATED 337 10^3/uL (150-450); RED BLOOD COUNT 4.77 10^6/uL (4.00-5.40); WHITE BLOOD COUNT 7.3 10^3/uL (4.0-10.0)
[2022-03-11 16:22] LABS: BLOOD UREA NITROGEN 13 MG/DL (9-23); CALCIUM LEVEL 9.8 MG/DL (8.5-10.1); CARBON DIOXIDE LEVEL 24 MMOL/L (20-31); CHLORIDE LEVEL 105 MMOL/L (98-107); GLOMERULAR FILTRATION RATE > 60.0 (>58); GLUCOSE, FASTING 106 MG/DL (60-100); POTASSIUM SERUM 4.1 MMOL/L (3.5-5.1); SODIUM LEVEL 137 MMOL/L (136-145)
[2022-03-11] MEDS ORDERED: MEDR4PAK PO (20:29)
[2022-03-11] MEDS ORDERED: METH-1165 PO (20:29)
[2022-03-11] MEDS ORDERED: HYDR-3713 PO (20:29)
[2022-03-11] MEDS ORDERED: ASPE4PAD TOP (20:29)
[2022-03-11] MEDS ORDERED: NORCO 5/325MG TABLET (HOME DOSE PACK) PO ONE (20:35)
[2022-03-11 20:44] VITALS: BP 111/77
[2022-03-11] MEDS ORDERED: ONDA4TAB6 PO (20:47)
== END 2022-03-11 20:54 | disposition home or self-care (01) ==
LOC: M ED 08:17
DX: M51.16 Intervertebral disc disorders with radiculopathy, lumbar region (principal); X50.0XXA Overexertion from strenuous movement or load, initial encounter; J45.909 Unspecified asthma, uncomplicated; F41.9 Anxiety disorder, unspecified; F17.200 Nicotine dependence, unspecified, uncomplicated; Z88.2 Allergy status to sulfonamides; Z88.5 Allergy status to narcotic agent; Z90.710 Acquired absence of both cervix and uterus; Z79.51 Long term (current) use of inhaled steroids; Z79.899 Other long term (current) drug therapy
CPT/HCPCS: 72148; 80048; 83735; 85025; 96361; 96372; 96374; 96375; 96376; 99284; J7512

== ENCOUNTER → 2022-03-24 | Outpatient (CLI) | payer OTHER ==
[~2022-03-24] MED LIST changes: +ASPE4PAD TOP; +HYDR-3713 PO; +MEDR4PAK PO; +ONDA4TAB6 PO
== END ==
LOC: M SOG 08:03
PROVIDERS: ATTEND Orthopaedic Surgery Adult Reconstructive Orthopaedic Surgery
DX: M54.50 Low back pain, unspecified (principal)

== ENCOUNTER → 2022-03-30 | Outpatient (REF) | payer OTHER ==
[2022-03-30 13:59] LABS: ALBUMIN 3.5 G/DL (3.2-5.2); ALKALINE PHOSPHATASE 97 U/L (46-116); ALT/SGPT 20 U/L (7.0-40); AST/SGOT 18 U/L (<34); BILIRUBIN,TOTAL 0.4 MG/DL (0.3-1.2); BLOOD UREA NITROGEN 11 MG/DL (9-23); CALCIUM LEVEL 9.2 MG/DL (8.5-10.1); CARBON DIOXIDE LEVEL 26 MMOL/L (20-31); CHLORIDE LEVEL 107 MMOL/L (98-107); CREATININE FOR GFR 0.59 MG/DL (0.55-1.30); GLOMERULAR FILTRATION RATE > 60.0 (>58); GLUCOSE, FASTING 92 MG/DL (60-100); POTASSIUM SERUM 4.1 MMOL/L (3.5-5.1); SODIUM LEVEL 139 MMOL/L (136-145); TOTAL PROTEIN 7.1 G/DL (5.7-8.2)
[2022-03-30 14:01] LABS: FREE T4 1.31 NG/DL (0.89-1.76); THYROID STIMULATING HORMONE 1.281 uIU/ML (0.55-4.78)
== END ==
LOC: M SFHCADAM 08:58
PROVIDERS: ATTEND Family Medicine
DX: F41.1 Generalized anxiety disorder (principal)

== ENCOUNTER 2022-07-03 01:32 | Emergency (ER) | payer OTHER ==
[~2022-07-03] VITALS: Ht 154.9 cm; Wt 81.0 kg
[~2022-07-03 01:32] MED LIST changes: +FLUT50SP17; -FLUTISP
[2022-07-03 01:33] VITALS: BP 109/64
[2022-07-03] MEDS ORDERED: KETOROLAC 30 MG/ML 1ML VIAL IV ONE (03:20)
[2022-07-03] MEDS ORDERED: ONDANSETRON 4MG 2ML VIAL IV ONE (03:20)
[2022-07-03 03:21] LABS: BASO # 0.1 10^3/uL (0.0-0.2); BASO % 0.5 % (0.0-1.0); EOS # 0.2 10^3/uL (0.0-0.5); EOS % 2.1 % (0.0-3.0); HEMATOCRIT 40.7 % (36.0-47.0); LYMPH # 3.9 10^3/uL (1.5-5.0); LYMPH % 39.3 % (24.0-44.0); MEAN CORPUSCULAR HEMOGLOBIN 29.7 pg (27.0-33.0); MEAN CORPUSCULAR HGB CONC 31.9 g/dl (32.0-36.5); MEAN CORPUSCULAR VOLUME 93.1 fl (80.0-96.0); MONO % 10.6 % (2.0-8.0); NEUTROPHILS # 4.6 10^3/uL (1.5-8.5); NEUTROPHILS % 47.2 % (36.0-66.0); PLATELET COUNT, AUTOMATED 317 10^3/uL (150-450); RED BLOOD COUNT 4.37 10^6/uL (4.00-5.40); WHITE BLOOD COUNT 9.8 10^3/uL (4.0-10.0)
[2022-07-03 03:30] LABS: LIPASE 22 U/L (12-53)
[2022-07-03 03:31] LABS: CK-MB VALUE MASS < 1.0 NG/ML (<3.6)
[2022-07-03 03:32] LABS: CPK CREATINE PHOSPHOKINASE 55 U/L (34-145); MB/CK RELATIVE INDEX 1.81 (< OR =4)
[2022-07-03 03:33] LABS: ALBUMIN 3.3 G/DL (3.2-5.2); ALKALINE PHOSPHATASE 91 U/L (46-116); ALT/SGPT 11 U/L (7.0-40); AST/SGOT 11 U/L (<34); BILIRUBIN,DIRECT < 0.1 MG/DL (<0.4); BILIRUBIN,TOTAL 0.2 MG/DL (0.3-1.2); BLOOD UREA NITROGEN 12 MG/DL (9-23); CALCIUM LEVEL 8.9 MG/DL (8.5-10.1); CARBON DIOXIDE LEVEL 28 MMOL/L (20-31); CHLORIDE LEVEL 107 MMOL/L (98-107); CREATININE FOR GFR 0.55 MG/DL (0.55-1.30); GLOMERULAR FILTRATION RATE > 60.0 (>58); GLUCOSE, FASTING 99 MG/DL (60-100); POTASSIUM SERUM 3.7 MMOL/L (3.5-5.1); SODIUM LEVEL 140 MMOL/L (136-145); TOTAL PROTEIN 6.5 G/DL (5.7-8.2)
[2022-07-03 03:35] LABS: INR 1.07; PROTHROMBIN TIME 14.1 SECONDS (12.5-14.5)
[2022-07-03] MEDS ORDERED: KETO10TAB PO (05:25)
== END 2022-07-03 05:48 | disposition home or self-care (01) ==
LOC: M ED 01:32
DX: R10.9 Unspecified abdominal pain (principal); K21.9 Gastro-esophageal reflux disease without esophagitis; N80.9 Endometriosis, unspecified; Z98.51 Tubal ligation status; Z90.710 Acquired absence of both cervix and uterus; Z88.2 Allergy status to sulfonamides; Z88.5 Allergy status to narcotic agent
CPT/HCPCS: 74176; 80048; 80076; 81001; 82550; 82553; 83690; 85025; 85610; 87086; 93005; 93041; 96374; 96375; 99284; J1885; J2405

== ENCOUNTER → 2023-03-08 | Outpatient (REF) | payer OTHER ==
[~2023-03-08] MED LIST changes: +CEFD1CAP9; -CEFD300C41; -FLUT50SP17; +FLUTISP
== END ==
LOC: M SFHCADAM 11:29
PROVIDERS: ATTEND Family Medicine
DX: R05.1 Acute cough (principal); Z53.9 Procedure and treatment not carried out, unspecified reason

== ENCOUNTER → 2023-05-09 | Outpatient (REF) | payer OTHER ==
[2023-05-09 13:33] LABS: BASO # 0.1 10^3/uL (0.0-0.2); BASO % 0.4 % (0.0-1.0); EOS # 0.2 10^3/uL (0.0-0.5); EOS % 1.6 % (0.0-3.0); HEMATOCRIT 43.1 % (36.0-47.0); HEMOGLOBIN 14.1 g/dl (12.0-15.5); LYMPH % 24.9 % (24.0-44.0); MEAN CORPUSCULAR HEMOGLOBIN 30.7 pg (27.0-33.0); MEAN CORPUSCULAR HGB CONC 32.7 g/dl (32.0-36.5); MEAN CORPUSCULAR VOLUME 93.9 fl (80.0-96.0); MONO % 7.9 % (2.0-8.0); NEUTROPHILS # 7.8 10^3/uL (1.5-8.5); PLATELET COUNT, AUTOMATED 346 10^3/uL (150-450); RED BLOOD COUNT 4.59 10^6/uL (4.00-5.40)
[2023-05-09 13:38] LABS: ALBUMIN 3.7 G/DL (3.2-5.2); ALKALINE PHOSPHATASE 89 U/L (46-116); ALT/SGPT 17 U/L (7.0-40); AST/SGOT 11 U/L (<34); BILIRUBIN,TOTAL 0.4 MG/DL (0.3-1.2); BLOOD UREA NITROGEN 13 MG/DL (9-23); CALCIUM LEVEL 8.9 MG/DL (8.5-10.1); CARBON DIOXIDE LEVEL 30 MMOL/L (20-31); CHLORIDE LEVEL 108 MMOL/L (98-107); CHOLESTEROL LEVEL 187 MG/DL (<200); CHOLESTEROL RISK RATIO 4.14 (<5); CREATININE FOR GFR 0.54 MG/DL (0.55-1.30); GLOMERULAR FILTRATION RATE > 60.0 (>58); GLUCOSE, FASTING 93 MG/DL (60-100); HDL CHOLESTEROL 45.1 MG/DL (>40); LDL CHOLESTEROL 121.3 MG/DL (<100); NON-HDL-C 141.9 MG/DL; POTASSIUM SERUM 4.4 MMOL/L (3.5-5.1); SODIUM LEVEL 140 MMOL/L (136-145); TRIGLYCERIDES LEVEL 103 MG/DL (<150)
[2023-05-09 13:39] LABS: FREE T4 1.24 NG/DL (0.89-1.76); THYROID STIMULATING HORMONE 1.489 uIU/ML (0.55-4.78)
[2023-05-09 13:40] LABS: FOLATE > 24.0 NG/ML (>5.4); VITAMIN B12 LEVEL 305 PG/ML (211-911)
[2023-05-09 14:18] LABS: HEMOGLOBIN A1c 5.4 % (4.0-6.0)
== END ==
LOC: M SFHCADAM 09:31
PROVIDERS: ATTEND Family Medicine
DX: E66.9 Obesity, unspecified (principal); K76.0 Fatty (change of) liver, not elsewhere classified

== ENCOUNTER → 2023-05-22 | Outpatient (CLI) | payer OTHER | LOC: M WHC 07:59 | PROVIDERS: ATTEND Family Medicine | DX: K76.0 Fatty (change of) liver, not elsewhere classified (principal) ==

== ENCOUNTER 2023-06-10 14:49 | Emergency (ER) | payer OTHER ==
[~2023-06-10] VITALS: Ht 154.9 cm; Wt 82.2 kg
[2023-06-10] MEDS ORDERED: NAPR-885 (14:56)
[2023-06-10] MEDS ORDERED: PENI500T (14:56)
[2023-06-10] MEDS ORDERED: DEXA4TA (14:56)
[2023-06-10 15:50] LABS: HEMATOCRIT 38.8 % (36.0-47.0); HEMOGLOBIN 13.2 g/dl (12.0-15.5); MEAN CORPUSCULAR HEMOGLOBIN 30.5 pg (27.0-33.0); MEAN CORPUSCULAR VOLUME 89.6 fl (80.0-96.0); PLATELET COUNT, AUTOMATED 339 10^3/uL (150-450); RED BLOOD COUNT 4.33 10^6/uL (4.00-5.40)
[2023-06-10 16:08] LABS: LIPASE 23 U/L (12-53)
[2023-06-10 16:11] LABS: ALBUMIN 3.1 G/DL (3.2-5.2); ALKALINE PHOSPHATASE 79 U/L (46-116); ALT/SGPT 15 U/L (7.0-40); AST/SGOT 12 U/L (<34); BILIRUBIN,DIRECT 0.2 MG/DL (<0.4); BILIRUBIN,TOTAL 0.5 MG/DL (0.3-1.2); MAGNESIUM LEVEL 2.1 MG/DL (1.8-2.4); TOTAL PROTEIN 6.3 G/DL (5.7-8.2)
[2023-06-10 16:20] LABS: ATYPICAL LYMPH 11 % (0-5); LYMPHOCYTES 35 % (16-44); MONOCYTES 4 % (0-5); NEUTROPHILS 50 % (28-66); PLATELET ESTIMATE NORMAL (NORMAL)
[2023-06-10] MEDS ORDERED: ISOVUE-370 76% 100ML VIAL As Ordered ONE (16:40)
[2023-06-10 17:12] LABS: CK-MB VALUE MASS < 1.0 NG/ML (<3.6)
[2023-06-10 17:14] LABS: MONO REFLEX EBV COMP NEGATIVE (NEGATIVE)
[2023-06-10 17:15] LABS: CPK CREATINE PHOSPHOKINASE 52 U/L (34-145); MB/CK RELATIVE INDEX 1.92 (< OR =4)
[2023-06-10] MEDS: KETOROLAC 30 MG/ML 1ML VIAL IV ONE (17:22)
[2023-06-10] MEDS: ONDANSETRON 4MG 2ML VIAL IV ONE (17:22)
[2023-06-10] MEDS: KCL 10MEQ/100ML SWI (KRUN) 10 MEQ in IV 1 EA IV ONE (17:23)
[2023-06-10] MEDS: NS 1,000 ML IV ONE (17:23)
[2023-06-10 17:49] LABS: CK-MB VALUE MASS < 1.0 NG/ML (<3.6)
[2023-06-10 17:50] LABS: CPK CREATINE PHOSPHOKINASE 37 U/L (34-145)
[2023-06-10] MEDS ORDERED: ONDA4TAB6 PO (19:34)
[2023-06-10] MEDS ORDERED: AMOX875T2 PO (19:34)
[2023-06-10 20:10] VITALS: BP 116/78; TEMP 97.4; O2SAT 99
[2023-06-13 15:08] LABS: EBV VIRAL CAPSID AG IgG >600.0 U/mL (0.0-17.9); EBV VIRAL CAPSID AG IgM <36.0 U/mL (0.0-35.9)
== END 2023-06-10 20:29 | disposition home or self-care (01) ==
LOC: M ED 14:49
DX: N39.0 Urinary tract infection, site not specified (principal); J02.0 Streptococcal pharyngitis; R11.2 Nausea with vomiting, unspecified; E87.6 Hypokalemia; F17.210 Nicotine dependence, cigarettes, uncomplicated; Z88.2 Allergy status to sulfonamides; Z88.8 Allergy status to other drugs, medicaments and biological substances; Z79.2 Long term (current) use of antibiotics; Z79.899 Other long term (current) drug therapy
CPT/HCPCS: 71046; 74177; 80047; 80076; 81001; 82550; 82553; 83690; 83735; 85025; 86308; 86664; 86665; 87086; 87880; 93005; 96365; 96366; 96374; 99284; J1885; J2405; Q9967

== ENCOUNTER → 2023-07-25 | Outpatient (REF) | payer OTHER ==
[~2023-07-25] MED LIST changes: +AMOX875T2 PO; +DEXA4TA; +DOXY-440 PO; -DOXY-444 PO; +NAPR-885; +PENI500T
[2023-07-25 17:49] LABS: ALBUMIN 3.7 G/DL (3.2-5.2); ALKALINE PHOSPHATASE 84 U/L (46-116); ALT/SGPT 21 U/L (7.0-40); AST/SGOT 13 U/L (<34); BILIRUBIN,TOTAL 0.4 MG/DL (0.3-1.2); BLOOD UREA NITROGEN 7 MG/DL (9-23); CALCIUM LEVEL 9.6 MG/DL (8.5-10.1); CARBON DIOXIDE LEVEL 26 MMOL/L (20-31); CHLORIDE LEVEL 111 MMOL/L (98-107); CREATININE FOR GFR 0.56 MG/DL (0.55-1.30); GLOMERULAR FILTRATION RATE > 60.0 (>58); GLUCOSE, FASTING 85 MG/DL (60-100); SODIUM LEVEL 140 MMOL/L (136-145); TOTAL PROTEIN 7.2 G/DL (5.7-8.2)
== END ==
LOC: M SFHCADAM 14:40
PROVIDERS: ATTEND Family Medicine
DX: E66.9 Obesity, unspecified (principal)

== ENCOUNTER → 2023-08-23 | Outpatient (REF) | payer OTHER ==
[~2023-08-23] MED LIST changes: +CETI-24; +EPIP0.3I2 IM; +ONDA-282 PO; -ONDA4TAB6 PO
== END ==
LOC: M SFHCADAM 10:35
PROVIDERS: ATTEND Family Medicine
DX: R09.89 Other specified symptoms and signs involving the circulatory and respiratory systems (principal); Z53.9 Procedure and treatment not carried out, unspecified reason

== ENCOUNTER 2023-08-27 13:38 | Emergency (ER) | payer OTHER ==
[~2023-08-27] VITALS: Ht 154.9 cm; Wt 79.5 kg
[~2023-08-27 13:38] MED LIST changes: -CETI-24; -EPIP0.3I2 IM
[2023-08-27] MEDS ORDERED: CETI-24 (13:48)
[2023-08-27] MEDS ORDERED: EPIP0.3I2 IM (15:53)
[2023-08-27 16:01] VITALS: BP 107/59; TEMP 97.3; O2SAT 98
== END 2023-08-27 16:03 | disposition home or self-care (01) ==
LOC: M ED 13:38 → EDBD 13:38 → M ED 16:03
DX: T63.441A Toxic effect of venom of bees, accidental (unintentional), initial encounter (principal); E78.5 Hyperlipidemia, unspecified; F41.9 Anxiety disorder, unspecified; F17.200 Nicotine dependence, unspecified, uncomplicated; Z88.2 Allergy status to sulfonamides; Z88.5 Allergy status to narcotic agent

== ENCOUNTER → 2024-01-23 | Outpatient (CLI) | payer OTHER ==
[~2024-01-23] MED LIST changes: +CETI-24; +EPIP0.3I2 IM; +ISOVUE-370 76% 100ML VIAL As Ordered ONE
[2024-01-23 09:41] LABS: BASO # 0.1 10^3/uL (0.0-0.2); BASO % 0.6 % (0.0-1.0); EOS # 0.1 10^3/uL (0.0-0.5); EOS % 1.6 % (0.0-3.0); HEMATOCRIT 43.8 % (36.0-47.0); HEMOGLOBIN 14.4 g/dl (12.0-15.5); LYMPH % 34.9 % (24.0-44.0); MEAN CORPUSCULAR HEMOGLOBIN 30.1 pg (27.0-33.0); MEAN CORPUSCULAR HGB CONC 32.9 g/dl (32.0-36.5); MEAN CORPUSCULAR VOLUME 91.6 fl (80.0-96.0); MONO # 0.8 10^3/uL (0.0-0.8); MONO % 9.2 % (2.0-8.0); NEUTROPHILS # 4.6 10^3/uL (1.5-8.5); NEUTROPHILS % 53.6 % (36.0-66.0); PLATELET COUNT, AUTOMATED 354 10^3/uL (150-450); RED BLOOD COUNT 4.78 10^6/uL (4.00-5.40); WHITE BLOOD COUNT 8.5 10^3/uL (4.0-10.0)
[2024-01-23 10:04] LABS: ALBUMIN 3.7 G/DL (3.2-5.2); ALKALINE PHOSPHATASE 88 U/L (35-104); ALT/SGPT 26 U/L (7.0-40); AST/SGOT 13 U/L (<34); BILIRUBIN,TOTAL 0.4 MG/DL (0.3-1.2); BLOOD UREA NITROGEN 7 MG/DL (9-23); CALCIUM LEVEL 9.5 MG/DL (8.5-10.1); CARBON DIOXIDE LEVEL 29 MMOL/L (20-31); CHLORIDE LEVEL 107 MMOL/L (98-107); CREATININE FOR GFR 0.59 MG/DL (0.55-1.30); GLOMERULAR FILTRATION RATE > 60.0 (>58); GLUCOSE, FASTING 96 MG/DL (60-100); POTASSIUM SERUM 4.7 MMOL/L (3.5-5.1); SODIUM LEVEL 141 MMOL/L (136-145); TOTAL PROTEIN 7.4 G/DL (5.7-8.2)
[2024-01-23 10:06] LABS: THYROID STIMULATING HORMONE 2.203 uIU/ML (0.55-4.78)
[2024-01-23 10:38] LABS: HEMOGLOBIN A1c 5.6 % (4.0-6.0)
== END ==
LOC: M RAD 08:53
PROVIDERS: ATTEND Family Medicine
DX: R06.02 Shortness of breath (principal)
CPT/HCPCS: 36415; 71275; 80053; 83036; 83880; 84443; 85025; Q9967

== ENCOUNTER 2024-02-17 21:14 | Emergency (ER) | payer OTHER ==
[~2024-02-17] VITALS: Ht 154.9 cm; Wt 86.2 kg
[~2024-02-17 21:14] MED LIST changes: -ISOVUE-370 76% 100ML VIAL As Ordered ONE
[2024-02-17] MEDS: KETOROLAC 60MG 2ML VIAL IM ONE (22:08)
[2024-02-17 23:01] VITALS: BP 109/58; TEMP 97.8; O2SAT 98
== END 2024-02-17 23:12 | disposition home or self-care (01) ==
LOC: M ED 21:14
DX: S52.121A Displaced fracture of head of right radius, initial encounter for closed fracture (principal); Y92.410 Unspecified street and highway as the place of occurrence of the external cause; Y93.9 Activity, unspecified; Y99.9 Unspecified external cause status; W01.0XXA Fall on same level from slipping, tripping and stumbling without subsequent striking against object, initial encounter; F17.210 Nicotine dependence, cigarettes, uncomplicated; F10.10 Alcohol abuse, uncomplicated; Z88.2 Allergy status to sulfonamides; Z88.5 Allergy status to narcotic agent; Z79.2 Long term (current) use of antibiotics
CPT/HCPCS: 29105; 73080; 73090; 73110; 96372; 99284; J1885

== ENCOUNTER → 2024-02-20 | Outpatient (CLI) | payer OTHER | LOC: M RAD 07:40 | PROVIDERS: ATTEND Student in an Organized Health Care Education/Training Program | DX: S52.121A Displaced fracture of head of right radius, initial encounter for closed fracture (principal); W18.30XA Fall on same level, unspecified, initial encounter; Y92.009 Unspecified place in unspecified non-institutional (private) residence as the place of occurrence of the external cause ==